=== PATIENT | female | born 1995 | race Caucasian/White ===

== ENCOUNTER 2017-04-22 15:00 | Emergency (ER) | payer SELFPAY ==
[~2017-04-22] VITALS: Ht 165.1 cm; Wt 58.4 kg
[2017-04-22 15:06] VITALS: Ht 165.1 cm; Wt 58.4 kg
[2017-04-22] MEDS ORDERED: ONDANSETRON INJ 2 MG/ML 2 ML VIAL IV STA (15:17)
--- NOTE | 2017-04-22 15:23 | EMERGENCY ROOM VISIT NOTE ---
History First contact with patient: 15:10 Chief Complaint: KIDNEY STONE Stated Complaint: KIDNEY STONE PAIN History of Present Illness The patient is a 21 year old female who presents to the Emergency Room with complaints of severe abdominal pain that started around noon this morning. The patient has a history of kidney stones. She says that this pain feels similar. It is sharp and stabbing in nature. It comes in waves. She also describes nausea and vomiting. She denies any dysuria. The patient also got her menses this morning; therefore, it is difficult to tell if there is blood in her urine or not. She denies any fever or chills. She did feel dizzy earlier this morning. She has not been eating and drinking well due to the pain. She took a Percocet, which seemed to help. Review of Systems 10 system review performed and negative unless noted in HPI or below Past Medical/Surgical History History of kidney stones Social History Smoking Status: Never Smoker Occupation Status: [employer] student Current/Historical Medications Scheduled Ondasetron Odt (Zofran Odt), 4 MG SL Q6H Sulfa/Trimethoprim (Bactrim Ds 800MG/160MG), 1 TAB PO BID Tamsulosin Hcl (Flomax), 0.4 MG PO DAILY Scheduled PRN Oxycodone/Acetaminophen 5MG/325MG (Percocet 5MG/325MG), 1 TAB PO Q4H PRN for Pain Physical Exam Vital Signs Date Time Temp Pulse Resp B/P (MAP) Pulse Ox O2 Delivery O2 Flow Rate FiO2 04/22/17 19:26 55 16 99/51 97 Room Air 04/22/17 17:11 78 16 101/79 99 Room Air 04/22/17 16:14 84 16 104/60 98 Room Air 04/22/17 15:37 101 18 96/51 98 Room Air 04/22/17 15:28 102/68 04/22/17 15:06 117 20 79/49 96 Room Air Physical Exam GENERAL: 21-year-old female, in significant discomfort., SKIN: The skin was pale HEAD: Normocephalic atraumatic. MOUTH: Mucous membranes dry NECK: Supple without nuchal rigidity. No JVD. HEART: Regular rate and rhythm without murmurs gallops or rubs. LUNGS: Clear to auscultation bilaterally without wheezes, rales or rhonchi. No accessory muscle use. ABDOMEN: Positive bowel sounds x 4.Soft, tenderness to palpation in the suprapubic region without organomegaly. No guarding or rebound tenderness. MUSCULOSKELETAL: No muscle atrophy, erythema, or edema noted. Strength 5/5 throughout. NEURO: Patient was alert and oriented to person place and time. Normal sensation to touch. No focal neurological deficits. Medical Decision & Procedures ER Provider Diagnostic Interpretation: Pelvic ultrasound IMPRESSION: Unremarkable pelvic ultrasound. Electronically signed by: Uriel Mcdonnell M.D. 04/22/2017 7:04 PM Dictated Date/Time: 04/22/2017 7:02 PM The status of this report is Signed. Draft = Not yet reviewed or approved by Radiologist. CT abdomen and pelvis without contrast Patient Name: CONNIE DYER Unit Number: [id number] Dictated: 04/22/171642 Transcribed: 04/22/171642 JA Printed Date/Time: [~ rep prt dt]/[~ rep prt tm] [~ rep ct labl] - [~ rep ct ivnm] [facility] [place] [address] Dictated: 04/22/171642 Transcribed: 04/22/171642 JA Printed Date/Time: [~ rep prt dt]/[~ rep prt tm] [~ rep ct labl] - [~ rep ct ivnm] IMPRESSION: 1. Several punctate right renal calculi. No ureteral calculi or hydronephrosis. 2. Normal appendix. No bowel obstruction. Electronically signed by: Uriel Mcdonnell M.D. 04/22/2017 4:50 PM Dictated Date/Time: 04/22/2017 4:43 PM The status of this report is Signed. Draft = Not yet reviewed or approved by Radiologist. Signed = Reviewed and approved by Radiologist. <AttendingPhy></AttendingPhy> <FamilyPhy>[facility]</FamilyPhy> <PrimaryPhy>[facility]</PrimaryPhy> <UnitNumber>[id number]</ UnitNumber> <VisitNumber>[id number]</VisitNumber> <PatientName>CONNIE DYER</ PatientName> <DateOfBirth>1995</DateOfBirth> <Location>[facility]</Location> < ServiceDate>04/22/17</ServiceDate> <MNE>ESINDI</MNE> <OrderingPhy>aMry Dennison PA-C</OrderingPhy> <OrderingPhyMNE>f rep ord dr corbin</OrderingPhyMNE> < DictatingPhyMNE>f rep dict dr corbin</DictatingPhyMNE> <CCListMNE>f rep ct mne</ CCListMNE> <AdmittingPhyMNE>f pt admit dr corbin</AdmittingPhyMNE> <AttendingPhyMNE >f pt attend dr corbin</AttendingPhyMNE> <ConsultingPhyMNE>f pt consult dr corbin</ConsultingPhyMNE> <FamilyPhyMNE>f pt fam dr corbin</FamilyPhyMNE> <OtherPhyMNE>f pt other dr corbin</OtherPhyMNE> < PrimaryPhyMNE>f pt prim care dr corbin</PrimaryPhyMNE> <ReferringPhyMNE>f pt referring dr corbin</ReferringPhyMNE> Laboratory Results 04/22/17 15:33 Red Blood Count 4.09, Mean Corpuscular Volume 93.9, Mean Corpuscular Hemoglobin 31.8, Mean Corpuscular Hemoglobin Concent 33.9, Mean Platelet Volume 9.4, Neutrophils (%) (Auto) 69.4, Lymphocytes (%) (Auto) 23.7, Monocytes (%) (Auto) 5.8, Eosinophils (%) (Auto) 0.5, Basophils (%) (Auto) 0.3, Neutrophils # (Auto) 8.08, Lymphocytes # (Auto) 2.75, Monocytes # (Auto) 0.67, Eosinophils # (Auto) 0.06, Basophils # (Auto) 0.03 04/22/17 15:33 Test 04/22/17 15:20 04/22/17 15:33 Urine Color DK YELLOW Urine Appearance CLOUDY (CLEAR) Urine pH 7.0 (4.5-7.5) Urine Specific [place] 1.025 (1.000-1.030) Urine Protein TRACE (NEG) Urine Glucose (UA) NEG (NEG) Urine Ketones TRACE (NEG) Urine Occult Blood 3+ (NEG) Urine Nitrite NEG (NEG) Urine Bilirubin NEG (NEG) Urine Urobilinogen NEG (NEG) Urine Leukocyte Esterase SMALL (NEG) Urine WBC (Auto) 10-30 /hpf (0-5) Urine RBC (Auto) >30 /hpf (0-4) Urine Hyaline Casts (Auto) 5-10 /lpf (0-5) Urine Epithelial Cells (Auto) >30 /lpf (0-5) Urine Bacteria (Auto) 1+ (NEG) White Blood Count 11.62 K/uL (4.8-10.8) Red Blood Count 4.09 M/uL (4.2-5.4) Hemoglobin 13.0 g/dL (12.0-16.0) Hematocrit 38.4 % (37-47) Mean Corpuscular Volume 93.9 fL (80-100) Mean Corpuscular Hemoglobin 31.8 pg (25-34) Mean Corpuscular Hemoglobin Concent 33.9 g/dl (32-36) Platelet Count 272 K/uL (130-400) Mean Platelet Volume 9.4 fL (7.4-10.4) Neutrophils (%) (Auto) 69.4 % Lymphocytes (%) (Auto) 23.7 % Monocytes (%) (Auto) 5.8 % Eosinophils (%) (Auto) 0.5 % Basophils (%) (Auto) 0.3 % Neutrophils # (Auto) 8.08 K/uL (1.4-6.5) Lymphocytes # (Auto) 2.75 K/uL (1.2-3.4) Monocytes # (Auto) 0.67 K/uL (0.11-0.59) Eosinophils # (Auto) 0.06 K/uL (0-0.5) Basophils # (Auto) 0.03 K/uL (0-0.2) RDW Standard Deviation 45.4 fL (36.4-46.3) RDW Coefficient of Variation 13.2 % (11.5-14.5) Immature Granulocyte % (Auto) 0.3 % Immature Granulocyte # (Auto) 0.03 K/uL (0.00-0.02) Anion Gap 4.0 mmol/L (3-11) Est Creatinine Clear Calc Drug Dose 80.8 ml/min Estimated GFR () 93.9 Estimated GFR (Non- 81.0 BUN/Creatinine Ratio 14.1 (10-20) Calcium Level 9.1 mg/dl (8.5-10.1) Total Bilirubin 0.7 mg/dl (0.2-1) Aspartate Amino Transf (AST/SGOT) 20 U/L (15-37) Alanine Aminotransferase (ALT/SGPT) 24 U/L (12-78) Alkaline Phosphatase 63 U/L (45-117) Total Protein 7.5 gm/dl (6.4-8.2) Albumin 3.9 gm/dl (3.4-5.0) Globulin 3.6 gm/dl (2.5-4.0) Albumin/Globulin Ratio 1.1 (0.9-2) Human Chorionic Gonadotropin, Qual NEG (NEG) Medications Administered Medications (Trade) Dose Ordered Sig/Bassem Route Start Time Stop Time Status Last Admin Dose Admin Sodium Chloride 1,000 ml @ 999 mls/hr Q1H1M ONCE IV 04/22/17 15:30 04/22/17 16:30 DC 04/22/17 15:29 999 MLS/HR Sodium Chloride 1,000 ml @ 999 mls/hr Q1H1M ONCE IV 04/22/17 15:30 04/22/17 16:30 DC 04/22/17 15:29 999 MLS/HR Morphine Sulfate (MoRPHine SULFATE INJ) 4 mg Q1H PRN IV 04/22/17 15:30 04/22/17 20:00 DC 04/22/17 15:30 4 MG Ondansetron HCl (Zofran Inj) 4 mg NOW STAT IV 04/22/17 15:17 04/22/17 15:21 DC 04/22/17 15:29 4 MG Trimethoprim/ Sulfamethoxazole (Septra Ds 800/ 160MG Tab) 1 tab NOW ONCE PO 04/22/17 19:30 04/22/17 19:31 DC 04/22/17 19:40 1 TAB ED Course Patient was seen and examined Vital signs including blood pressure were reviewed medications list was verified with patient Labs were obtained, and a saline lock was established The patient was medicated with morphine and Zofran. She was hydrated with 2 L normal saline. Imaging was performed. Upon reevaluation, the patient was feeling better. We discussed the results of her workup. She voiced understanding. I reviewed discharge instructions the patient. They voiced understanding and had no further questions. Medical Decision DIFFERENTIAL DIAGNOSIS: Ureteral stone, UTI, midsternal cramping, ovarian cyst, ectopic , ovarian torsion This patient is a 21-year-old female that presents to the emergency department with complaints of severe abdominal pain that started suddenly in addition to nausea and vomiting. This is a similar presentation to her kidney stones in the past. On exam, the patient was significantly uncomfortable. She was initially hypotensive. Lab work reveals mild leukocytosis. Her renal function is intact. Urinalysis shows 10-30 white blood cells in addition to blood. A CT was performed. No stone was noted. I ordered a pelvic ultrasound to rule out ovarian torsion or cyst. This was unremarkable. Upon reevaluating the patient, she told me that her pain dramatically improved prior to her CT. I believe she likely passed a stone. She had good pain relief in the emergency department. I am going to treat the patient for a UTI with a seven-day course of Bactrim. She is instructed to follow-up with the urologist in addition to her primary care physician. She is comfortable with this plan. She agrees to return to the emergency department with any new, worsening or concerning symptoms. This chart was completed in part utilizing [employer] Speech Voice Recognition software. Attempts were made to minimize the grammatical errors, random word insertions, pronoun errors and incomplete sentences. Any formal questions or concerns about the content, text or information contained within the body of this dictation should be directly addressed to the provider for clarification. Medication Reconcilliation Current Medication List: was personally reviewed by me Blood Pressure Screening Patient's blood pressure: Low blood pressure Impression Primary Impression: Kidney stone Departure Information Dispostion Home / Self-Care Condition GOOD Prescriptions Ondasetron Odt (ZOFRAN ODT) 4 Mg Tab 4 MG SL Q6H for Nausea, #20 TAB Prov: Mary Dennison PA-C 04/22/17 Sulfa/Trimethoprim (Bactrim Ds 800MG/160MG) Tab 1 TAB PO BID for 7 Days, #14 TAB Prov: Mary Dennison PA-C 04/22/17 Tamsulosin Hcl (FLOMAX) 0.4 Mg Cap 0.4 MG PO DAILY, #14 CAP Prov: Mary Dennison PA-C 04/22/17 Oxycodone/Acetaminophen 5MG/325MG (PERCOCET 5MG/325MG) Tab 1 TAB PO Q4H Y for Pain, #15 TAB For Initial Treatment Prov: Mary Dennison PA-C 04/22/17 Patient Instructions [facility] Additional Instructions You were evaluated in the emergency department for severe abdominal pain. This is likely due to a passed kidney stone. It does appear that you have a urinary tract infection. Please take the entire course of antibiotics. Ibuprofen 600 mg every 6 hours Percocet 1-2 tabs every 4 hours for severe pain. Do not drink alcohol or drive while taking this medication. This may be taken with ibuprofen, but avoid Tylenol. Please take Flomax 1 tablet daily Zofran 1 tab under the tongue every 6 hours as needed for nausea Please increase your fluids especially over the next several days Please follow-up with your primary care physician. You should also follow-up with a urologist. A number has been provided for one in [facility]. Please do not hesitate to return to the emergency department with any new, worsening or concerning symptoms
[2017-04-22] MEDS ORDERED: MoRPHine SULFATE 4 MG/ML 1 ML CARP\\VIAL IV PRN (15:30)
[2017-04-22] MEDS ORDERED: SODIUM CHLORIDE 0.9% 1000ML 1,000 ML IV ONE ×2 (15:30)
[2017-04-22 15:42] LABS: URINE APPEARANCE CLOUDY (CLEAR); URINE BILIRUBIN NEG (NEG); URINE COLOR DK YELLOW; URINE EPITHELIAL CELL AUTO >30 /lpf (0-5); URINE NITRITE NEG (NEG); URINE SPECIFIC GRAVITY 1.025 (1.000-1.030); UROBILINOGEN NEG (NEG)
[2017-04-22 15:42] LABS: BASO % 0.3 %; BASO ABS # 0.03 K/uL (0-0.2); COMPLETE YES; EOS % 0.5 %; HEMATOCRIT 38.4 % (37-47); IG% 0.3 %; LYMPH % 23.7 %; LYMPH ABS # 2.75 K/uL (1.2-3.4); MEAN CELL VOLUME 93.9 fL (80-100); MEAN CORPUSCULAR HEMOGLOBIN 31.8 pg (25-34); MEAN CORPUSCULAR HGB CONC 33.9 g/dl (32-36); MEAN PLATELET VOLUME 9.4 fL (7.4-10.4); MONO % 5.8 %; NEUT % 69.4 %; PLATELET COUNT 272 K/uL (130-400); RED BLOOD COUNT 4.09 M/uL (4.2-5.4); WHITE BLOOD COUNT 11.62 K/uL (4.8-10.8)
[2017-04-22 16:10] LABS: MANUAL MICROSCOPIC REQUIRED? NO; REVIEW REQ? NO
[2017-04-22 16:12] LABS: PREG INTERNAL NEGATIVE QC NEG CLEAR BACKGROUND; PREG INTERNAL POSITIVE QC POS CONTROL LINE
[2017-04-22 16:14] LABS: BUN/CREATININE RATIO 14.1 (10-20); CALCIUM 9.1 mg/dl (8.5-10.1); POTASSIUM 3.5 mmol/L (3.5-5.1)
[2017-04-22 16:16] LABS: ALB/GLOB RATIO 1.1 (0.9-2)
--- NOTE | 2017-04-22 16:51 | DIAGNOSTIC IMAGING REPORT ---
CT OF THE ABDOMEN AND PELVIS WITHOUT CONTRAST, STONE PROTOCOL CLINICAL HISTORY: Suprapubic pain. History of kidney stones. COMPARISON STUDY: None. TECHNIQUE: Helical axial images of the abdomen and pelvis were obtained without IV or oral contrast according to renal stone protocol. A dose lowering technique was utilized adhering to the principles of ALARA. FINDINGS: Several punctate right renal calculi are noted. There are no ureteral calculi. There is no hydronephrosis. Evaluation of the remainder of the abdomen and pelvis is suboptimal on this unenhanced exam. The liver, spleen, adrenal glands and pancreas are unremarkable. No pneumatosis, free air or portal venous gas is present. The appendix is normal. There is no bowel obstruction. There is no free fluid. No suspicious skeletal lesions are present. IMPRESSION: 1. Several punctate right renal calculi. No ureteral calculi or hydronephrosis. 2. Normal appendix. No bowel obstruction. Electronically signed by: Uriel Mcdonnell M.D. 04/22/2017 4:50 PM Dictated Date/Time: 04/22/2017 4:43 PM
--- NOTE | 2017-04-22 19:06 | DIAGNOSTIC IMAGING REPORT ---
PELVIC ULTRASOUND CLINICAL HISTORY: Severe pain. Possible ovarian cyst. COMPARISON STUDY: CT of the abdomen and pelvis performed earlier today. TECHNIQUE: Transabdominal and transvaginal sonography of the pelvis was performed. FINDINGS: The uterus measures 7 x 3.6 x 4.2 cm. Endometrium measures 8 mm in thickness. The right ovary measures 2.7 x 1.5 x 1.7 cm and the left measures 1.6 x 2.6 x 1.3 cm. Color flow is identified within each ovary. There is trace fluid within the pelvis. IMPRESSION: Unremarkable pelvic ultrasound. Electronically signed by: Uriel Mcdonnell M.D. 04/22/2017 7:04 PM Dictated Date/Time: 04/22/2017 7:02 PM
[2017-04-22] MEDS ORDERED: SULF800T23 PO (19:23)
[2017-04-22] MEDS ORDERED: OXYC-57 PO (19:23)
[2017-04-22] MEDS ORDERED: ONDA4TAB10 SL (19:23)
[2017-04-22] MEDS ORDERED: TAMS0.4C38 PO (19:23)
[2017-04-22 19:26] VITALS: BP 99/51; PULSE 55; O2SAT 97
[2017-04-22] MEDS ORDERED: SULFAMETHOXAZOLE/TRIMETHOPRIM DS 800/160MG TAB PO ONE (19:30)
== END 2017-04-22 19:41 | disposition home or self-care (01) ==
LOC: C.EDB 15:02
DX: N20.0 Calculus of kidney (principal); Z87.442 Personal history of urinary calculi; R03.1 Nonspecific low blood-pressure reading